=== PATIENT | male | born 1975 | race Caucasian/White ===

== ENCOUNTER 2024-04-15 21:07 | Emergency (ER) | payer BC, MEDICAID ==
[~2024-04-15] VITALS: Ht 167.6 cm; Wt 86.0 kg
[2024-04-15 21:27] VITALS: BP 187/76; PULSE 88; RESP 16; TEMP 98.4; O2SAT 98
== END 2024-04-15 23:52 | disposition left against medical advice (07) ==
LOC: ER 21:07
DX: R68.89 Other general symptoms and signs (principal); Z53.21 Procedure and treatment not carried out due to patient leaving prior to being seen by health care provider